=== PATIENT | male | born 1955 | race Two or more races ===

== ENCOUNTER 2017-10-07 19:14 | Emergency (ER) | payer SELFPAY ==
[2017-10-07 19:34] VITALS: BP 149/94
--- NOTE | 2017-10-07 20:03 | EDPHY ---
H & P Time Seen by Provider: 10/07/17 19:21 HPI/ROS: This patient complains of constipation. He reports that he at baseline has a bowel movement every 3 or 4 days. It has been 3 days since his last bowel movement but he is only able to pass very small firm"chelsea". He thinks that he has a bit of fecal impaction as he has had this before. He has tried milk of magnesia, Colace, glycerin suppository and fleets enemas prior to coming in. He reports mild discomfort from hemorrhoids from straining that he has had the past. He states this pain is mild. He denies any other complaints. He came in by private vehicle with his . ROS: Constitutional: No fevers noted except slight subjective for the past hour. HEENT: No URI symptoms or other complaints new line pulmonary: No cough shortness of breath Cardiovascular: No chest pain or lightheadedness GI: No abdominal pain no vomiting. He has been eating well today he feels slightly bloated. : No flank pain. No dysuria frequency urgency or hematuria. Integumentary: No rash Endocrine: No complaints 10 point ROS is otherwise negative. Social History: Does not drink alcohol. No drug use. 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 Eyes: Pupils equal and round no pallor or injection. ENT, Mouth: Mucous membranes moist. Respiratory: There are no retractions, lungs are clear to auscultation. Cardiovascular: Regular rate and rhythm. No murmur gallop or rub Gastrointestinal: Abdomen is soft and nontender, no masses, bowel sounds normal. Back: No flank tenderness Rectal exam: Declined Neurological: GCS 15 Skin: Warm and dry, no rashes. Musculoskeletal: Neck is supple nontender. Extremities are symmetrical, full range of motion. Psychiatric: Mood and affect are normal DIFFERENTIAL DIAGNOSIS: After history and physical exam differential diagnosis was considered for constipation, obstipation, fecal impaction, hemorrhoid, thrombosed hemorrhoid, bowel obstruction, UTI Constitutional: Initial Vital Signs Temperature (C) 37.6 C 10/07/17 19:31 Heart Rate 83 10/07/17 19:31 Respiratory Rate 18 10/07/17 19:31 Blood Pressure 149/94 H 10/07/17 19:31 O2 Sat (%) 96 10/07/17 19:31 O2 Delivery Mode Room Air Allergies/Adverse Reactions: No Known Allergies Allergy (Unverified 10/07/17 19:34) Home Medications: Medication Instructions Recorded Amlodipine Besylate 10/07/17 Aspirin 81mg (*) 10/07/17 Carvedilol 10/07/17 Crestor 10/07/17 Gliclazide 10/07/17 Glucophage XR 500 mg (*) 10/07/17 Hydralazine HCl 10/07/17 Natrilix 10/07/17 MDM/Departure - [facility] ED Course/Re-evaluation: After my initially examination the patient realized that he had to urinate after I palpate the suprapubic area. While in the bathroom to urinate he was able to have a large bowel movement. He explains that he had a firm piece of stool followed by a large amounts of stool with relief of his symptoms. Due to the success with a BM, he declined a rectal exam. Urine dip is sent for urinalysis and pending. Urine dip reveals no evidence of infection-1+ protein and minimal glucose Discussion: Patient presented with constipation and I think that the medications he took prior to arrival finally worked with a BM without intervention here and relief of his symptoms. He has a benign belly exam and a very low-grade fever but no infectious symptoms. He is not interested in any further workup at this time and feels well. A provided a outpatient physician follow-up is the patient will be here in [place] for 3 weeks any understands that he can return emergency department if he developed worsening symptoms despite plan of ongoing bowel regimen of stool softeners, glycerin suppositories , Fleet's enemas cetera. - Depart Disposition: Home, Routine, Self-Care Clinical Impression: Constipation Qualifiers: Constipation type: unspecified constipation type Qualified Code(s): K59.00 - Constipation, unspecified Condition: Good Instructions: Constipation (ED) Additional Instructions: Diagnosis: 1. Constipation Plan: Drink plenty of fluids Continue her current medications Call Dr. Mai to arrange follow-up appointment for any ongoing symptoms Return to the emergency department for any significant worsening despite treatment plan Referrals: NONE *PRIMARY CARE P,. [Primary Care Provider] - As per Instructions Jacob Mai MD [Medical Doctor] - As per Instructions
== END 2017-10-07 20:18 | disposition home or self-care (01) ==
LOC: CED 19:14
DX: K59.00 Constipation, unspecified (principal); Z79.82 Long term (current) use of aspirin